=== PATIENT | male | born 1985 | race Caucasian/White ===

== ENCOUNTER 2018-04-17 17:24 | Inpatient (IN) | payer BC, OTHER ==
[~2018-04-17] VITALS: Ht 175.3 cm; Wt 75.3 kg
[2018-04-18] MEDS ORDERED: SODIUM CHLORIDE 0.9% 1,000 ML IV ONE (00:36)
[2018-04-18] MEDS ORDERED: FAMOTIDINE 20MG/2ML VIAL IV STA (00:36)
[2018-04-18] MEDS ORDERED: VISCOUS LIDOCAINE 2% 15 ML UDC PO STA (00:36)
[2018-04-18] MEDS ORDERED: METOCLOPRAMIDE HCL 10MG/2ML VIAL IV STA (00:36)
[2018-04-18] MEDS ORDERED: MAGNESIUM/ALUMINUM HYDROXIDE/SIMETHICONE 30ML UDC PO STA (00:36)
[2018-04-18] MEDS ORDERED: KETOROLAC 30MG/ML VIAL IV STA (00:36)
[2018-04-18 01:06] LABS: BASOPHILS % 0.2 % (0.0-2.0); EOSINOPHILS % 0.2 % (0.0-5.0); HEMATOCRIT. 43.2 % (42.0-52.0); HEMOGLOBIN. 14.9 g/dL (14.0-18.0); LYMPHOCYTES % 24.3 % (20.0-50.0); MEAN CORPUSCULAR HEMOGLOBIN 31.8 pg (28.0-32.0); MEAN PLATELET VOLUME 8.6 fl (7.4-10.4); MONOCYTES % 10.8 % (2.0-8.0); NEUTROPHILS % 64.5 % (40.0-76.0); PLATELET 176 x1000/uL (130-400); RED CELL DISTRIBUTION WIDTH 12.9 % (11.6-14.6)
[2018-04-18 01:13] LABS: CHLORIDE 103 mEq/L (98-107)
[2018-04-18] MEDS ORDERED: PIPERACILLIN/TAZ 3.375G PREMIX 50 ML IV ONE (03:45)
[2018-04-18] MEDS ORDERED: SODIUM CHLORIDE 0.9% 1,000 ML IV SCH (05:55)
[2018-04-18] MEDS ORDERED: ACETAMINOPHEN 325MG TABLET PO PRN (06:00)
[2018-04-18] MEDS ORDERED: IBUPROFEN 600MG TABLET PO PRN (06:00)
[2018-04-18 11:00] VITALS: BP 131/93
[2018-04-18 12:00] VITALS: BP 131/93
[2018-04-18] MEDS ORDERED: ONDANSETRON HCL 4MG/2ML INJ IM PRN (13:30)
[2018-04-18] MEDS ORDERED: KETOROLAC 30MG/ML VIAL IV PRN (13:30)
[2018-04-18] MEDS ORDERED: CEFEPIME 2,000 MG in DEXT 5% WATER 100 ML IV SCH (15:00)
[2018-04-18] MEDS: PANTOPRAZOLE SODIUM 40 MG/VIAL IV SCH (15:11)
[2018-04-18] MEDS: ENOXAPARIN 40MG/0.4ML SYR SUBCUT SCH (15:12)
[2018-04-18] MEDS: DEXT 5%/0.45% NACL KCL 20MEQ/L 1,000 ML IV SCH (15:12)
[2018-04-18 16:12] VITALS: BP 122/82
[2018-04-18 20:00] VITALS: BP 116/82
[2018-04-19] VITALS: BP 110/71
[2018-04-19] MEDS: CEFEPIME 2,000 MG in DEXT 5% WATER 100 ML IV SCH ×2 (02:45→14:56)
[2018-04-19] MEDS: DEXT 5%/0.45% NACL KCL 20MEQ/L 1,000 ML IV SCH (03:55)
[2018-04-19 04:07] VITALS: BP 108/75
[2018-04-19 06:56] LABS: BASOPHILS % 0.6 % (0.0-2.0); EOSINOPHILS % 1.9 % (0.0-5.0); HEMATOCRIT. 42.7 % (42.0-52.0); HEMOGLOBIN. 14.4 g/dL (14.0-18.0); LYMPHOCYTES % 31.4 % (20.0-50.0); MEAN CORPUSCULAR HEMOGLOBIN 31.6 pg (28.0-32.0); MEAN CORPUSCULAR VOLUME 93.7 fL (80.0-94.0); MEAN PLATELET VOLUME 8.9 fl (7.4-10.4); MONOCYTES % 12.9 % (2.0-8.0); NEUTROPHILS % 53.2 % (40.0-76.0); PLATELET 168 x1000/uL (130-400); RED BLOOD CELL COUNT 4.55 mill/uL (4.7-6.1); RED CELL DISTRIBUTION WIDTH 12.8 % (11.6-14.6)
[2018-04-19 07:03] LABS: CHLORIDE 107 mEq/L (98-107)
[2018-04-19 07:19] LABS: PHOSPHORUS 3.4 mg/dL (2.5-4.9)
[2018-04-19 07:20] LABS: LDL CHOLESTEROL 117 mg/dL (5-100)
[2018-04-19 07:22] LABS: HDL CHOLESTEROL 44 mg/dL (40-59)
[2018-04-19 08:00] VITALS: BP 129/75
[2018-04-19] MEDS: PANTOPRAZOLE SODIUM 40 MG/VIAL IV SCH (09:20)
[2018-04-19] MEDS: ENOXAPARIN 40MG/0.4ML SYR SUBCUT SCH (09:21)
[2018-04-19 12:00] VITALS: BP 115/86
[2018-04-19 16:00] VITALS: BP 125/87
[2018-04-19 16:39] VITALS: BP 125/87
== END 2018-04-19 17:00 | disposition home or self-care (01) | DRG 446 ==
LOC: ER 18:32 → 6EST 04-18 05:56 → EDBEDREQTM 04-18 05:59 → EDBEDREQ 04-18 05:59 → ENRESERV 04-18 08:45
PROVIDERS: ADMIT Internal Medicine Pulmonary Disease; ATTEND Internal Medicine Pulmonary Disease
DX: K80.20 Calculus of gallbladder without cholecystitis without obstruction (principal); E78.1 Pure hyperglyceridemia; K21.9 Gastro-esophageal reflux disease without esophagitis; E78.5 Hyperlipidemia, unspecified; F10.10 Alcohol abuse, uncomplicated
CPT/HCPCS: 36415; 76705; 80048; 80061; 83735; 84100; 93005; 96365; 96375; 99285; C9113; J0692; J1650; J1885; J2543; J2765; J3490; J7030; J7040; J7060